=== PATIENT | male | born 1975 | race Caucasian/White ===

== ENCOUNTER → 2016-05-28 | Outpatient (CLI) | payer OTHER ==
[~2016-05-28] MED LIST: AMLODIPINE BESY10 MG PO; FLEXERIL10 M1 PO; VOLTAREN75 MG PO
== END | disposition home or self-care (01) ==
LOC: CRC 09:11
DX: J44.9 Chronic obstructive pulmonary disease, unspecified (principal)
CPT/HCPCS: 94060; 94726; 94729